=== PATIENT | female | born 1940 | race Caucasian/White ===

== ENCOUNTER → 2017-11-02 | Outpatient (CLI) | END | disposition home or self-care (01) ==

== ENCOUNTER → 2018-02-17 | Outpatient (CLI) | payer MEDICARE, OTHER ==
[~2018-02-17] MED LIST: ALBU90OI INH; ALEN10 PO; ALLO100 PO; ALLO300 PO; AMLO5 PO; ASPI325 PO; ATEN25 PO; CEPH500 PO; COLC.6 PO; COLCHICINE; Colace100 MG PO; Crutch1 EACH MISC; DOCU100 PO; FENO145 PO; FURO40 PO; GABA300 PO; GEMF600 PO; GLIP5 PO; GLUCOPHAGE; HCTZ; HYDACE5 PO; HYDCHL12.5 PO; INDO50 PO; INSDET100; INSDET100 INJ; INSDET100 SC; INSUASPI SC; IRON; LEVEMIR FL100 UNIT/1 SQ; LIPITOR; LISI20 PO; METF500 PO; METF500C PO; METO25ER PO; NAPR500 PO; Norco 5-325 Ta1 EACH PO; OMEG1CAP30 PO; ONGLYZA5 MG PO; OXYACE5T PO; PARI1 PO; PRAV20 PO; PRED20 PO; RANI150 PO; RXOXYACE PO; SAXA2.5T; SPIHYD PO; Zofran Odt4 MG SL
== END | disposition home or self-care (01) ==
LOC: LAB SHORT 07:54 → PLD 07:54
DX: D48.5 Neoplasm of uncertain behavior of skin (principal); L72.9 Follicular cyst of the skin and subcutaneous tissue, unspecified
CPT/HCPCS: 88304

== ENCOUNTER 2018-09-08 12:52 | Emergency (ER) | payer MEDICARE, OTHER ==
[~2018-09-08] VITALS: Ht 162.6 cm; Wt 54.4 kg
[2018-09-08 14:17] LABS: BASOPHILS ABSOLUTE AUTO 0.04 K/mm3 (0.00-0.23); BASOPHILS PERCENT AUTO 1 % (0-2); EOSINOPHILS ABSOLUTE AUTO 0.11 K/mm3 (0.00-0.68); EOSINOPHILS PERCENT AUTO 2 % (0-6); Hematocrit 42.1 % (33.0-51.0); Hemoglobin 13.2 g/dL (11.5-16.0); IMMATURE GRAN ABSOLUTE AUTO 0.02 K/mm3 (0.00-0.10); IMMATURE GRAN PERCENT AUTO 0 % (0-1); LYMPHOCYTES ABSOLUTE AUTO 1.47 K/mm3 (0.84-5.20); LYMPHOCYTES PERCENT AUTO 26 % (21-46); MONOCYTES ABSOLUTE AUTO 0.48 K/mm3 (0.16-1.47); MONOCYTES PERCENT AUTO 8 % (4-13); Mean Corpuscular HGB 28.9 pg (26.0-34.0); Mean Corpuscular HGB Conc 31.4 g/dL (31.5-36.5); Mean Corpuscular Volume 92 fL (80-100); Mean Platelet Volume 10.8 fL (9.1-12.4); NEUTROPHILS ABSOLUTE AUTO 3.62 K/mm3 (1.96-9.15); NEUTROPHILS PERCENT AUTO 63 % (41-73); Platelet Count 171 K/mm3 (150-400); RDW Coefficient Variation 13.5 % (11.7-14.2); Red Blood Cell Count 4.57 M/mm3 (3.80-5.20); White Blood Cell Count 5.74 K/mm3 (4.00-11.30)
[2018-09-08 14:33] LABS: Source, Urine Clean Catch
[2018-09-08] MEDS ORDERED: GABA300 PO (14:33)
[2018-09-08] MEDS ORDERED: FURO40 PO (14:34)
[2018-09-08] MEDS ORDERED: Prinivil10 MG PO (14:35)
[2018-09-08] MEDS ORDERED: ELOCON15 GM TOP (14:37)
[2018-09-08] MEDS ORDERED: TRULICITY0.75 MG/0. SC (14:39)
[2018-09-08] MEDS ORDERED: ONGLYZA5 MG PO (14:39)
[2018-09-08 14:40] LABS: Appearance, Urine Clear (Clear); Bilirubin, Urine Neg (Neg); Blood, Urine Neg (Neg); Color, Urine Yellow (P-Yellow); Glucose Qualitative, Urine Neg (Neg); Ketones, Urine Neg (Neg); Leukocyte Esterase, Urine 1+ (Neg); Nitrite, Urine Neg (Neg); Protein, Urine Neg (Neg); Urobilinogen, Urine NORM (Normal); pH, Urine 6.5 (5.0-8.0)
[2018-09-08 14:42] LABS: Alanine Aminotransfer (ALT/SGP 19 U/L (12-78); Albumin, Blood 3.9 g/dL (3.4-5.0); Albumin/Globulin Ratio 1.2 (0.8-1.8); Alk Phos 80 U/L (50-136); Anion Gap 7 mmol/L (6-16); Aspartate Aminotrans (AST/SGOT 22 U/L (12-37); Bilirubin, Total 0.5 mg/dL (0.1-1.0); Blood Urea Nitrogen 13 mg/dL (8-24); Bun/Creatinine Ratio 16.2 (12.0-20.0); CO2, Blood 24 mmol/L (21-32); Calcium, Blood 9.4 mg/dL (8.5-10.1); Chloride, Blood 109 mmol/L (98-108); Globulin, Blood 3.2 g/dL (2.2-4.0); Glomerular Filtration Rate >60 (60-); Glucose, Blood 109 mg/dL (70-99); Potassium, Blood 4.3 mmol/L (3.5-5.5); Sodium, Blood 140 mmol/L (136-145); Total Protein, Blood 7.1 g/dL (6.4-8.2); Troponin I <0.015 ng/mL (0.000-0.040)
[2018-09-08 15:01] LABS: Bacteria Few /hpf; Red Blood Cells, Urine Rare /hpf (0-2); Squamous Epithelial Cells Few /hpf (Few)
== END 2018-09-08 19:22 | disposition home or self-care (01) ==
LOC: ER 12:52
PROVIDERS: Emergency Medicine; Physician Assistant
DX: R07.9 Chest pain, unspecified (principal); F03.90 Unspecified dementia, unspecified severity, without behavioral disturbance, psychotic disturbance, mood disturbance, and anxiety; I10 Essential (primary) hypertension; R11.0 Nausea; Z79.899 Other long term (current) drug therapy; Z79.4 Long term (current) use of insulin; E11.40 Type 2 diabetes mellitus with diabetic neuropathy, unspecified
CPT/HCPCS: 36415; 71046; 73110; 80053; 81001; 83690; 84484; 85025; 87077; 87086; 87186; 93005; 93010; 96374; 96375; 99285-25; J0360; J2405; J7030

== ENCOUNTER → 2019-09-26 | Outpatient (CLI) | payer MEDICARE, OTHER ==
[~2019-09-26] MED LIST changes: +ELOCON15 GM TOP; +Prinivil10 MG PO; +TRULICITY0.75 MG/0. SC
== END | disposition home or self-care (01) ==
LOC: LAB SHORT 16:38 → LAB 16:38
DX: E55.9 Vitamin D deficiency, unspecified (principal); D47.2 Monoclonal gammopathy; M17.11 Unilateral primary osteoarthritis, right knee; M10.9 Gout, unspecified; M81.0 Age-related osteoporosis without current pathological fracture
CPT/HCPCS: 82652

== ENCOUNTER 2020-05-09 05:19 | Inpatient (IN) | payer MEDICARE, OTHER ==
[~2020-05-09] VITALS: Ht 157.5 cm; Wt 51.3 kg
[2020-05-09 05:36] LABS: BASOPHILS ABSOLUTE AUTO 0.05 K/mm3 (0.00-0.23); BASOPHILS PERCENT AUTO 1 % (0-2); EOSINOPHILS ABSOLUTE AUTO 0.17 K/mm3 (0.00-0.68); EOSINOPHILS PERCENT AUTO 2 % (0-6); Hematocrit 39.1 % (33.0-51.0); Hemoglobin 12.2 g/dL (11.5-16.0); IMMATURE GRAN ABSOLUTE AUTO 0.06 K/mm3 (0.00-0.10); IMMATURE GRAN PERCENT AUTO 1 % (0-1); LYMPHOCYTES ABSOLUTE AUTO 1.43 K/mm3 (0.84-5.20); LYMPHOCYTES PERCENT AUTO 20 % (21-46); MONOCYTES ABSOLUTE AUTO 0.61 K/mm3 (0.16-1.47); MONOCYTES PERCENT AUTO 8 % (4-13); Mean Corpuscular HGB 29.2 pg (26.0-34.0); Mean Corpuscular HGB Conc 31.2 g/dL (31.5-36.5); Mean Corpuscular Volume 94 fL (80-100); Mean Platelet Volume 10.4 fL (9.1-12.4); NEUTROPHILS ABSOLUTE AUTO 4.91 K/mm3 (1.96-9.15); NEUTROPHILS PERCENT AUTO 68 % (41-73); Platelet Count 184 K/mm3 (150-400); RDW Coefficient Variation 13.2 % (11.7-14.2); RDW Standard Deviation 45.5 fL (35.1-46.3); Red Blood Cell Count 4.18 M/mm3 (3.80-5.20); White Blood Cell Count 7.23 K/mm3 (4.00-11.30)
[2020-05-09 05:53] LABS: Bun/Creatinine Ratio 14.5 (12.0-20.0); Calcium, Blood 9.1 mg/dL (8.5-10.1); Creatinine, Blood 1.1 mg/dL (0.40-1.00); International Normalized Ratio 0.99; Prothrombin Time Results 10.6 Sec (9.7-11.5)
[2020-05-09 10:39] LABS: Influenza A, PCR Negative (NEGATIVE); Influenza B, PCR Negative (NEGATIVE); Resp Syncytial Virus, PCR Negative (NEGATIVE); SARS-Cov-2 (COVID-19) PCR, MMC Negative (NEGATIVE)
--- NOTE | 2020-05-09 12:47 | NUR ---
PATIENT'S SPOUSE IN TO SEE; BROUGHT BILAT HILL'S AND LOWER DENTURES. PATIENT USED BEDPAN; TOLERATED WELL. PATIENT VERY TALKATIVE, RANDOM AT TIMES. PLEASANT AND COOPERATIVE. IVF FLUID INFUSING PER ORDER. SPOKE WITH DR MORALES, VERIFIED LASIX ORDER, START TOMORROW.
--- NOTE | 2020-05-09 16:50 | NUR ---
PATIENT TO ROOM 213 VIA BED FROM PACU. AWAKE. DENIES PAIN, NAUSEA. SURGICAL DRESSING TO R HIP X 2. WIGGLES FEET. CIRC CHECKS WNL. VSS. LS CLEAR. BIOX > 90% ON RA. HRR. CONT TO MONITOR.
[2020-05-10 04:27] LABS: BASOPHILS ABSOLUTE AUTO 0.01 K/mm3 (0.00-0.23); BASOPHILS PERCENT AUTO 0 % (0-2); EOSINOPHILS PERCENT AUTO 0 % (0-6); Hematocrit 29.4 % (33.0-51.0); Hemoglobin 9.4 g/dL (11.5-16.0); IMMATURE GRAN ABSOLUTE AUTO 0.04 K/mm3 (0.00-0.10); IMMATURE GRAN PERCENT AUTO 0 % (0-1); LYMPHOCYTES ABSOLUTE AUTO 0.66 K/mm3 (0.84-5.20); LYMPHOCYTES PERCENT AUTO 7 % (21-46); MONOCYTES PERCENT AUTO 8 % (4-13); Mean Corpuscular HGB 29.7 pg (26.0-34.0); Mean Corpuscular Volume 93 fL (80-100); Mean Platelet Volume 10.6 fL (9.1-12.4); NEUTROPHILS ABSOLUTE AUTO 8.59 K/mm3 (1.96-9.15); NEUTROPHILS PERCENT AUTO 85 % (41-73); Platelet Count 147 K/mm3 (150-400); RDW Standard Deviation 44.4 fL (35.1-46.3); Red Blood Cell Count 3.17 M/mm3 (3.80-5.20)
[2020-05-10 04:45] LABS: Bun/Creatinine Ratio 16.8 (12.0-20.0); Calcium, Blood 8.6 mg/dL (8.5-10.1); Creatinine, Blood 1.13 mg/dL (0.40-1.00); Magnesium, Blood 1.9 mg/dL (1.6-2.4); Potassium, Blood 4.6 mmol/L (3.5-5.5)
--- NOTE | 2020-05-10 05:29 | NUR ---
SHIFT SUMMARY POD 1 R HIP NAILING. AA0X1/2. UNABLE TO STATE DATE OR LOCATION EVENTUAL REMEMEBERED SHE WAS AT HOSPITAL. PLEASANT AND COOPERATIVE DURING SHIFT. CALLS APPROPRIATLY FOR BED PAIN. VOIDED MULTIPLE TIMES. TOLERATING PO WELL. DENIES PAIN DURING SHIFT. REPOSITIONS SELF IN BED. PLAN WILL BE TO WORK WITH PT TODAY.
--- NOTE | 2020-05-10 17:06 | NUR ---
SHIFT SUMMARY PATIENT W/O C/O THIS SHIFT. TOLERATES UP TO CHAIR, BSC. SURGICAL DRESSING X 2 TO R HIP D&I. CIRC CHECKS WNL. TOLERATING PO. VOIDING. SPOUSE IN TO SEE. NO ACUTE CHANGES.
--- NOTE | 2020-05-11 04:59 | NUR ---
SHIFT SUMMARY PT A/O X3; FORGETFUL/CONFUSED AT TIMES - BED ALARM ON. PT HAS BEEN UP TO BSC SEVERAL TIMES WITH FWW, GB, AND 1-2X ASSIST. TOLERATING PO INTAKE W/O N/V. VOIDING AND HAVING BM'S. BP HAS BEEN LOW; HELD 21OO BP MEDICATIONS, DISCUSSED WITH POWER CHISEL OPERATOR, AND RESTARTED IV FLUIDS PER ORDER. PT RESTING AT THIS TIME WITH CALL LIGHT IN REACH AND BED ALARM ON.
[2020-05-11 12:54] LABS: BASOPHILS ABSOLUTE AUTO 0.05 K/mm3 (0.00-0.23); BASOPHILS PERCENT AUTO 1 % (0-2); EOSINOPHILS ABSOLUTE AUTO 0.18 K/mm3 (0.00-0.68); EOSINOPHILS PERCENT AUTO 3 % (0-6); Hematocrit 29.6 % (33.0-51.0); Hemoglobin 9.4 g/dL (11.5-16.0); IMMATURE GRAN ABSOLUTE AUTO 0.05 K/mm3 (0.00-0.10); IMMATURE GRAN PERCENT AUTO 1 % (0-1); LYMPHOCYTES ABSOLUTE AUTO 1.16 K/mm3 (0.84-5.20); LYMPHOCYTES PERCENT AUTO 16 % (21-46); MONOCYTES ABSOLUTE AUTO 0.65 K/mm3 (0.16-1.47); MONOCYTES PERCENT AUTO 9 % (4-13); Mean Corpuscular HGB 29.8 pg (26.0-34.0); Mean Corpuscular HGB Conc 31.8 g/dL (31.5-36.5); Mean Corpuscular Volume 94 fL (80-100); Mean Platelet Volume 10.9 fL (9.1-12.4); NEUTROPHILS ABSOLUTE AUTO 5.25 K/mm3 (1.96-9.15); NEUTROPHILS PERCENT AUTO 71 % (41-73); Platelet Count 137 K/mm3 (150-400); RDW Coefficient Variation 13.3 % (11.7-14.2); RDW Standard Deviation 45.5 fL (35.1-46.3); Red Blood Cell Count 3.15 M/mm3 (3.80-5.20); White Blood Cell Count 7.34 K/mm3 (4.00-11.30)
[2020-05-11 12:57] LABS: Bun/Creatinine Ratio 24.1 (12.0-20.0); Calcium, Blood 8.4 mg/dL (8.5-10.1); Creatinine, Blood 1.08 mg/dL (0.40-1.00); Potassium, Blood 4.4 mmol/L (3.5-5.5)
--- NOTE | 2020-05-11 15:39 | NUR ---
DISCHARGE NOTE REPORT GIVE TO RACHEL @ [facility], PT A/O X4 AT TIME OF TRANSPORT ARRIVAL, 2 BM TODAY, 2 UNMEASURED VOIDS, TOLERATING PO, PASSING FLATUS, PAIN WELL CONTROLLED PER EMAR. VITALS STABLE AND GIVEN IN REPORT, NO BED SORES NOTED, AQUACELLS TO R LEG C/D/I, FRESH DEPENDS APPLIED. PT SENT W/ ALL PERSONAL BELONGINGS.
== END 2020-05-11 15:30 | DRG 482 ==
LOC: ER 05:19 → SURS 10:03
PROVIDERS: Emergency Medicine; Family Medicine; Internal Medicine; Orthopaedic Surgery; ADMIT Family Medicine
PROC: 0QS636Z Reposition Right Upper Femur with Intramedullary Internal Fixation Device, Percutaneous Approach (ICD-10-PCS; principal; 2020-05-09 15:45)
DX: S72.141A Displaced intertrochanteric fracture of right femur, initial encounter for closed fracture (principal); E11.42 Type 2 diabetes mellitus with diabetic polyneuropathy; E11.65 Type 2 diabetes mellitus with hyperglycemia; I10 Essential (primary) hypertension; M10.9 Gout, unspecified; W19.XXXA Unspecified fall, initial encounter; Z20.828 Contact with and (suspected) exposure to other viral communicable diseases; F03.90 Unspecified dementia, unspecified severity, without behavioral disturbance, psychotic disturbance, mood disturbance, and anxiety; E78.5 Hyperlipidemia, unspecified; E89.0 Postprocedural hypothyroidism; M17.10 Unilateral primary osteoarthritis, unspecified knee
CPT/HCPCS: 0241U; 36415; 71045; 73502; 73560-RT; 80048; 82947; 83735; 85025; 85610; 85730; 86850; 86900; 86901; 93005; 93010; 97110; 97162; 97166; 97530; 99285-25; A9270; A9270-GY; C1713; C1769; J0690; J1650; J2704; J3010; J3480; J7030; J7120

== ENCOUNTER 2020-05-30 13:16 | Inpatient (IN) | payer MEDICARE, OTHER ==
[~2020-05-30] VITALS: Ht 154.9 cm; Wt 48.7 kg
[2020-05-30 13:50] LABS: Calcium, Ionized (POC) 1.16 mmol/L (1.10-1.46); Chloride (POC) 87 mmol/L (98-108); Creatinine (POC) 2.1 mg/dL (0.6-1.0); Glucose (ISTAT POC) 106 mg/dL (70-99); Hemoglobin (POC) 10.5 g/dL (12.0-16.0); Sodium (POC) 117 mmol/L (135-148); Total CO2 (POC) 22 mmol/L (21-32)
[2020-05-30 13:56] LABS: BASOPHILS ABSOLUTE AUTO 0.04 K/mm3 (0.00-0.23); BASOPHILS PERCENT AUTO 1 % (0-2); EOSINOPHILS PERCENT AUTO 4 % (0-6); Hematocrit 30.8 % (33.0-51.0); Hemoglobin 10.3 g/dL (11.5-16.0); IMMATURE GRAN ABSOLUTE AUTO 0.19 K/mm3 (0.00-0.10); IMMATURE GRAN PERCENT AUTO 3 % (0-1); LYMPHOCYTES ABSOLUTE AUTO 1.68 K/mm3 (0.84-5.20); LYMPHOCYTES PERCENT AUTO 24 % (21-46); MONOCYTES ABSOLUTE AUTO 0.65 K/mm3 (0.16-1.47); MONOCYTES PERCENT AUTO 9 % (4-13); Mean Corpuscular HGB 29.1 pg (26.0-34.0); Mean Corpuscular HGB Conc 33.4 g/dL (31.5-36.5); Mean Corpuscular Volume 87 fL (80-100); Mean Platelet Volume 9.8 fL (9.1-12.4); NEUTROPHILS PERCENT AUTO 60 % (41-73); Platelet Count 408 K/mm3 (150-400); RDW Coefficient Variation 12.8 % (11.7-14.2); RDW Standard Deviation 40.6 fL (35.1-46.3); Red Blood Cell Count 3.54 M/mm3 (3.80-5.20); White Blood Cell Count 7.16 K/mm3 (4.00-11.30)
[2020-05-30 14:18] LABS: Alanine Aminotransfer (ALT/SGP 13 U/L (12-78); Albumin, Blood 3.1 g/dL (3.4-5.0); Albumin/Globulin Ratio 0.9 (0.8-1.8); Alk Phos 103 U/L (50-136); Anion Gap 11 mmol/L (6-16); Aspartate Aminotrans (AST/SGOT 20 U/L (12-37); Bilirubin, Total 0.4 mg/dL (0.1-1.0); Blood Urea Nitrogen 68 mg/dL (8-24); Bun/Creatinine Ratio 42.2 (12.0-20.0); CO2, Blood 22 mmol/L (21-32); Calcium, Blood 9.1 mg/dL (8.5-10.1); Chloride, Blood 88 mmol/L (98-108); Creatinine, Blood 1.61 mg/dL (0.40-1.00); Globulin, Blood 3.6 g/dL (2.2-4.0); Glomerular Filtration Rate 33 (60-); Glucose, Blood 103 mg/dL (70-99); Potassium, Blood 4.7 mmol/L (3.5-5.5); Sodium, Blood 121 mmol/L (136-145); Total Protein, Blood 6.7 g/dL (6.4-8.2); Troponin I <0.015 ng/mL (0.000-0.040)
[2020-05-30 15:24] LABS: Influenza A, PCR Negative (NEGATIVE); Influenza B, PCR Negative (NEGATIVE); Resp Syncytial Virus, PCR Negative (NEGATIVE); SARS-Cov-2 (COVID-19) PCR, MMC Negative (NEGATIVE)
[2020-05-30] MEDS ORDERED: Aspir 8181 MG PO (15:29)
[2020-05-30 15:47] LABS: Source, Urine Catheter
[2020-05-30 15:52] LABS: Appearance, Urine Clear (Clear); Bilirubin, Urine Neg (Neg); Blood, Urine Neg (Neg); Color, Urine Yellow (P-Yellow); Glucose Qualitative, Urine Neg (Neg); Ketones, Urine 1+ (Neg); Leukocyte Esterase, Urine Neg (Neg); Nitrite, Urine Neg (Neg); Protein, Urine Neg (Neg); Specific Gravity, Urine 1.015 (1.003-1.022); Urobilinogen, Urine NORM (Normal)
--- NOTE | 2020-05-30 17:58 | NUR ---
TRANSFERED TO ICU 7 PT ARRIVED AT 1719 TO ICU RM 7 BY ED BED. PT TRANSFERED TO ICU BED VIA SLIDE SHEET; PT TOLERATED WELL. PT BEING PACED AT 70BPM WITH 100% CAPTURE. BP 94/46. PT ORIENTED TO SELF BUT NOT LOCATION/DATE/TIME. PT O2 SAT >98% ON RA. DE LEON PATENT AND DRAINING TO GRAVITY. SEE ADMISSION ASSESSMENT FOR FULL ASSESSMENT.
--- NOTE | 2020-05-30 19:57 | NUR ---
PATIENT RESTING QUIETLY IN BED, SLIGHTLY CONFUSED CONVERSATION. FOLLOWING DIRECTIONS WELL. TRANSVENOUS PACER IN PLACE TO RIGHT IJ, WITH 40 CM MICHELE NEAREST EXPOSED. MONITOR SHOWING 100% PACED AT RATE OF 70. HYPOTENSION WITH NS IV BOLUS GIVEN AND NS AT 75 CC/HR STARTED. DE LEON IN PLACE DRAINING CLEAR YELLOW URINE. PULSES 2+ TO ALL EXTREMITIES. PATIENT WITH NO COMPLAINTS AT THIS TIME
--- NOTE | 2020-05-30 20:27 | NUR ---
DOCTOR JAQUELINE NOTIFIED OF CONTINUED HYPOTENSION. NEEDING TO BE CAUTIOUS OF FLUID OVERLOAD. ORDER OF DOPAMINE IV FOR MAP > 65
[2020-05-30 20:55] LABS: Specific Gravity, Urine 1.01 (1.003-1.022)
[2020-05-30] MEDS ORDERED: CEPH500 PO (22:17)
[2020-05-30] MEDS ORDERED: SENN187 PO (22:18)
[2020-05-30] MEDS ORDERED: HYDR1TAB94 PO (22:19)
[2020-05-30] MEDS ORDERED: ACET325 PO (22:20)
[2020-05-31 03:49] LABS: BASOPHILS ABSOLUTE AUTO 0.03 K/mm3 (0.00-0.23); BASOPHILS PERCENT AUTO 0 % (0-2); EOSINOPHILS ABSOLUTE AUTO 0.02 K/mm3 (0.00-0.68); EOSINOPHILS PERCENT AUTO 0 % (0-6); Hematocrit 31.2 % (33.0-51.0); Hemoglobin 10.5 g/dL (11.5-16.0); IMMATURE GRAN ABSOLUTE AUTO 0.16 K/mm3 (0.00-0.10); IMMATURE GRAN PERCENT AUTO 2 % (0-1); LYMPHOCYTES ABSOLUTE AUTO 0.37 K/mm3 (0.84-5.20); LYMPHOCYTES PERCENT AUTO 5 % (21-46); MONOCYTES ABSOLUTE AUTO 0.29 K/mm3 (0.16-1.47); MONOCYTES PERCENT AUTO 4 % (4-13); Mean Corpuscular HGB 29.2 pg (26.0-34.0); Mean Corpuscular HGB Conc 33.7 g/dL (31.5-36.5); Mean Corpuscular Volume 87 fL (80-100); Mean Platelet Volume 9.9 fL (9.1-12.4); NEUTROPHILS ABSOLUTE AUTO 7.28 K/mm3 (1.96-9.15); NEUTROPHILS PERCENT AUTO 89 % (41-73); Platelet Count 414 K/mm3 (150-400); RDW Coefficient Variation 12.8 % (11.7-14.2); RDW Standard Deviation 40.9 fL (35.1-46.3); Red Blood Cell Count 3.59 M/mm3 (3.80-5.20); White Blood Cell Count 8.15 K/mm3 (4.00-11.30)
[2020-05-31 05:23] LABS: Anion Gap 9 mmol/L (6-16); Blood Urea Nitrogen 47 mg/dL (8-24); Bun/Creatinine Ratio 55.5 (12.0-20.0); CO2, Blood 21 mmol/L (21-32); Calcium, Blood 8.6 mg/dL (8.5-10.1); Chloride, Blood 102 mmol/L (98-108); Creatinine, Blood 0.85 mg/dL (0.40-1.00); Glomerular Filtration Rate >60 (60-); Glucose, Blood 176 mg/dL (70-99); Potassium, Blood 4.6 mmol/L (3.5-5.5)
[2020-05-31 05:29] LABS: Sodium, Blood 132 mmol/L (136-145)
--- NOTE | 2020-05-31 06:37 | NUR ---
SUMMARY PATIENT AWAKE WATCHING TV, CONFUSED CONVERSATION CONTINUES. MAEW AND TO DIRECTIONS. RIGHT PUPIL LARGER THAN LEFT. TRANSVENOUS PACER IN PLACE AT 32 CM 100% PACED SET AT 6V. OCCASIONAL PVC SEEN. HYPOTENSION CONTINUES DOPAMINE AT 8 MCG.
--- NOTE | 2020-05-31 08:02 | NUR ---
ASSUMED CARE BEDSIDE REPORT FROM SAMI BONNER AT 0700. PT RESTING IN BED. MAKES EYE CONTACT. CONFUSED CONVERSATION. RESPONDS "YES" TO MOST QUESTIONS. FOLLOWS SIMPLE COMMANDS. KIMBER. TRANSVENOUS PACEMAKER TO RIJ. MODE VVI, RATE 70, V 6. 100% PACED. PACEMAKER SECURED c OPSITE DRESSING, BETWEEN 30-40. DOPAMINE GTT 8 MCG/KG/MIN INFUSING VIA CENTRAL LINE PORT. TITRATING FOR MAP>65. IVF CHANGED TO LR AT 75 ML/HR. LUNGS DIMINISHED IN BASES. DE LEON PATENT, DRAINING CLEAR YELLOW URINE TO GRAVITY. CALL LIGHT IN REACH. WILL CONTINUE TO MONITOR.
--- NOTE | 2020-05-31 10:01 | NUR ---
Echocardiogram completed.
--- NOTE | 2020-05-31 14:34 | NUR ---
SHIFT SUMMARY/TRANSFER TO [facility] AFTER ECHO, DR BASURTO NOTIFIED BY CRIMINAL RECORDS TECHNICIAN OF POSSIBLE LV PLACEMENT OF TRANSVENOUS PACER. UNABLE TO DRAW BLOOD FROM PORT. PLACED TO TRANSDUCER, UNABLE TO GET ACCURATE WAVE FORM, APPEARS TO PULSATE c HR. DOPAMINE CHANGED TO PIV. CONCERN FOR ARTERIAL PLACEMENT. CONTINUES TO HAVE 100% CAPTURE, STRONG PERIPHERAL PULSES. DR BASURTO AT BEDSIDE TO PLACE TRANSVENOUS CATH, PLACED TO [facility]. SETTINGS VVI, RATE 70, mV 2, V 6. 100% CAPTURE. 40 CM VISABLE UNDER STERILE SHEATH PROTECTOR, 30 CM VISUALIZED PRIOR TO SHEATH PROTECTOR BEING SECURED. PREVIOUS SHEATH REMOVED BY DR PERKINS AND PRESSURE APPLIED. NO SWELLING, BRUISING OR BLEEDING NOTED. DRESSING PLACED OVER ENTIRE SITE. REPORT TO REACH TEAM. WILL CALL REPORT TO ELISHA BONNER AT [facility].
== END 2020-05-31 14:10 | disposition short-term general hospital (02) | DRG 261 ==
LOC: ER 13:16 → ICUW 13:17 → ICUE 13:17 → ICUW 16:03 → ICUE 18:05 → ICUW 18:05 → ICUE 05-31 14:10
PROVIDERS: Emergency Medicine; ADMIT Internal Medicine
PROC: 05HM33Z Insertion of Infusion Device into Right Internal Jugular Vein, Percutaneous Approach (ICD-10-PCS; principal; 2020-05-30)
PROC: 5A1223Z Performance of Cardiac Pacing, Continuous (ICD-10-PCS; 2020-05-30)
PROC: 02HK3JZ Insertion of Pacemaker Lead into Right Ventricle, Percutaneous Approach (ICD-10-PCS; 2020-05-30)
PROC: 5A1223Z Performance of Cardiac Pacing, Continuous (ICD-10-PCS; 2020-05-31)
DX: I44.2 Atrioventricular block, complete (principal); N17.9 Acute kidney failure, unspecified; E87.1 Hypo-osmolality and hyponatremia; G93.49 Other encephalopathy; Z68.1 Body mass index [BMI] 19.9 or less, adult; E46 Unspecified protein-calorie malnutrition; Z20.828 Contact with and (suspected) exposure to other viral communicable diseases; E11.65 Type 2 diabetes mellitus with hyperglycemia; E86.0 Dehydration; E11.42 Type 2 diabetes mellitus with diabetic polyneuropathy; F03.90 Unspecified dementia, unspecified severity, without behavioral disturbance, psychotic disturbance, mood disturbance, and anxiety; I12.9 Hypertensive chronic kidney disease with stage 1 through stage 4 chronic kidney disease, or unspecified chronic kidney disease; E11.22 Type 2 diabetes mellitus with diabetic chronic kidney disease; N18.9 Chronic kidney disease, unspecified; E78.5 Hyperlipidemia, unspecified; M10.9 Gout, unspecified; D64.9 Anemia, unspecified; M17.10 Unilateral primary osteoarthritis, unspecified knee; S72.001D Fracture of unspecified part of neck of right femur, subsequent encounter for closed fracture with routine healing; Z86.39 Personal history of other endocrine, nutritional and metabolic disease; Z79.899 Other long term (current) drug therapy; Z79.82 Long term (current) use of aspirin; Z98.84 Bariatric surgery status
CPT/HCPCS: 0241U; 33210; 36415; 36556; 51702; 71045; 80047; 80048; 80053; 81003; 82607; 82746; 83930; 83935; 84300; 84443; 84484; 85014; 85025; 93005; 93010; 93306; 96374-59; 99285-25; C1751; C1894; J0461; J1265; J1650; J2250; J3010; J7030; J7040; J7050; J7120

== ENCOUNTER 2020-07-28 09:14 | Emergency (ER) | payer MEDICARE, OTHER ==
[~2020-07-28] VITALS: Ht 162.6 cm; Wt 52.2 kg
[~2020-07-28 09:14] MED LIST changes: +ACET325 PO; +Aspir 8181 MG PO; +HYDR1TAB94 PO; +LISI5 PO; -Prinivil10 MG PO; +SENN187 PO
[2020-07-28 09:44] LABS: BASOPHILS ABSOLUTE AUTO 0.01 K/mm3 (0.00-0.23); BASOPHILS PERCENT AUTO 0 % (0-2); EOSINOPHILS ABSOLUTE AUTO 0.13 K/mm3 (0.00-0.68); EOSINOPHILS PERCENT AUTO 2 % (0-6); Hematocrit 38.4 % (33.0-51.0); Hemoglobin 12.6 g/dL (11.5-16.0); IMMATURE GRAN ABSOLUTE AUTO 0.04 K/mm3 (0.00-0.10); IMMATURE GRAN PERCENT AUTO 1 % (0-1); LYMPHOCYTES ABSOLUTE AUTO 0.75 K/mm3 (0.84-5.20); LYMPHOCYTES PERCENT AUTO 9 % (21-46); MONOCYTES ABSOLUTE AUTO 0.43 K/mm3 (0.16-1.47); MONOCYTES PERCENT AUTO 5 % (4-13); Mean Corpuscular HGB 28.1 pg (26.0-34.0); Mean Corpuscular HGB Conc 32.8 g/dL (31.5-36.5); Mean Corpuscular Volume 86 fL (80-100); Mean Platelet Volume 10.2 fL (9.1-12.4); NEUTROPHILS ABSOLUTE AUTO 7.04 K/mm3 (1.96-9.15); NEUTROPHILS PERCENT AUTO 84 % (41-73); Platelet Count 150 K/mm3 (150-400); RDW Coefficient Variation 14.2 % (11.7-14.2); RDW Standard Deviation 43.5 fL (35.1-46.3); Red Blood Cell Count 4.49 M/mm3 (3.80-5.20)
[2020-07-28 10:02] LABS: Alanine Aminotransfer (ALT/SGP 13 U/L (12-78); Albumin, Blood 3.7 g/dL (3.4-5.0); Albumin/Globulin Ratio 1.3 (0.8-1.8); Alk Phos 63 U/L (50-136); Anion Gap 15 mmol/L (6-16); Aspartate Aminotrans (AST/SGOT 22 U/L (12-37); Bilirubin, Total 0.9 mg/dL (0.1-1.0); Blood Urea Nitrogen 45 mg/dL (8-24); Bun/Creatinine Ratio 51.1 (12.0-20.0); CO2, Blood 21 mmol/L (21-32); Calcium, Blood 10.2 mg/dL (8.5-10.1); Chloride, Blood 101 mmol/L (98-108); Creatinine, Blood 0.88 mg/dL (0.40-1.00); Globulin, Blood 2.9 g/dL (2.2-4.0); Glomerular Filtration Rate >60 (60-); Glucose, Blood 133 mg/dL (70-99); Potassium, Blood 4.3 mmol/L (3.5-5.5); Sodium, Blood 137 mmol/L (136-145); Total Protein, Blood 6.6 g/dL (6.4-8.2)
[2020-07-28 11:22] LABS: Source, Urine Clean Catch
[2020-07-28 11:35] LABS: Blood, Urine 2+ (Neg); Glucose Qualitative, Urine Neg (Neg); Ketones, Urine 3+ (Neg); Leukocyte Esterase, Urine 3+ (Neg); Nitrite, Urine Pos (Neg); Protein, Urine 2+ (Neg); Specific Gravity, Urine 1.025 (1.003-1.022); Urobilinogen, Urine NORM (Normal)
[2020-07-28 11:45] LABS: Bilirubin, Urine 1+ (Neg); Color, Urine Yellow (P-Yellow)
[2020-07-28 11:46] LABS: Appearance, Urine Cloudy (Clear)
[2020-07-28 11:47] LABS: Bacteria Many /hpf; Red Blood Cells, Urine 0-2 /hpf (0-2); Squamous Epithelial Cells Few /hpf (Few); White Blood Cells, Urine 25-50 /hpf (0-5)
[2020-07-28] MEDS ORDERED: CEPH500 PO (11:54)
== END 2020-07-28 12:46 | disposition home or self-care (01) ==
LOC: ER 09:14
PROVIDERS: Emergency Medicine
DX: N39.0 Urinary tract infection, site not specified (principal); R63.0 Anorexia; R63.4 Abnormal weight loss; E11.40 Type 2 diabetes mellitus with diabetic neuropathy, unspecified; E78.5 Hyperlipidemia, unspecified; I10 Essential (primary) hypertension; Z68.1 Body mass index [BMI] 19.9 or less, adult; Z79.82 Long term (current) use of aspirin
CPT/HCPCS: 70450; 71045; 80053; 81001; 84443; 85025; 87077; 87086; 87186; 93005; 93010; 96365; 99285-25; J0696

== ENCOUNTER 2020-08-04 14:35 | Inpatient (IN) | payer MEDICARE, OTHER ==
[~2020-08-04] VITALS: Ht 160 cm; Wt 35.6 kg
[2020-08-04 15:10] LABS: BASOPHILS ABSOLUTE AUTO 0.01 K/mm3 (0.00-0.23); BASOPHILS PERCENT AUTO 0 % (0-2); EOSINOPHILS ABSOLUTE AUTO 0.16 K/mm3 (0.00-0.68); EOSINOPHILS PERCENT AUTO 3 % (0-6); Hematocrit 38.5 % (33.0-51.0); IMMATURE GRAN ABSOLUTE AUTO 0.03 K/mm3 (0.00-0.10); IMMATURE GRAN PERCENT AUTO 1 % (0-1); LYMPHOCYTES ABSOLUTE AUTO 0.79 K/mm3 (0.84-5.20); LYMPHOCYTES PERCENT AUTO 12 % (21-46); MONOCYTES ABSOLUTE AUTO 0.27 K/mm3 (0.16-1.47); MONOCYTES PERCENT AUTO 4 % (4-13); Mean Corpuscular HGB 27.3 pg (26.0-34.0); Mean Corpuscular HGB Conc 31.2 g/dL (31.5-36.5); Mean Corpuscular Volume 88 fL (80-100); Mean Platelet Volume 11.5 fL (9.1-12.4); NEUTROPHILS ABSOLUTE AUTO 5.14 K/mm3 (1.96-9.15); NEUTROPHILS PERCENT AUTO 80 % (41-73); RDW Coefficient Variation 14.6 % (11.7-14.2); RDW Standard Deviation 46.6 fL (35.1-46.3); Red Blood Cell Count 4.39 M/mm3 (3.80-5.20)
[2020-08-04 15:26] LABS: Albumin/Globulin Ratio 1.1 (0.8-1.8); Bilirubin, Total 0.7 mg/dL (0.1-1.0); Bun/Creatinine Ratio 56.1 (12.0-20.0); Calcium, Blood 9.9 mg/dL (8.5-10.1); Creatinine, Blood 1.55 mg/dL (0.40-1.00); Globulin, Blood 2.8 g/dL (2.2-4.0); Potassium, Blood 3.7 mmol/L (3.5-5.5); Total Protein, Blood 5.8 g/dL (6.4-8.2)
[2020-08-04 15:29] LABS: Platelet Count 73 K/mm3 (150-400)
[2020-08-04] MEDS ORDERED: THERA-D2000 UNIT PO (15:52)
[2020-08-04] MEDS ORDERED: TRULICITY0.75 MG/01 SC (15:52)
[2020-08-04] MEDS ORDERED: Vitamin B-121000 MCG PO (15:53)
[2020-08-04] MEDS ORDERED: METO25ER PO (15:53)
[2020-08-04 17:25] LABS: Influenza A, PCR NEGATIVE (NEGATIVE); Influenza B, PCR NEGATIVE (NEGATIVE); Resp Syncytial Virus, PCR NEGATIVE (NEGATIVE); SARS-Cov-2 (COVID-19) PCR, MMC NEGATIVE (NEGATIVE)
--- NOTE | 2020-08-04 19:33 | NUR ---
SHIFT SUMMARY PT CAME HERE FOR DEHYDRATION AND FTT. PT LIVES WITH AT HOME AND IS THE CAREGIVER OF THIS PT. STATED PT HAS BEEN DECLINING FOR WEEKS AND NOT EATING.PT VERY WEAK AND FRAGILE WITH MALNUTRITION. PT CAME IN NONVERBAL AND EYES CLOSED. PT IS ON 2L OF O2 FOR SUPPLEMENT.SATS ABOVE 90S. AND VSS. PT IS IN DENIAL STAGE ABOUT THE SITUATION OF THIS PT. PT STATED THAT THE PT PROBABLY HAS MULTIPLE BRUISES ESPECIALLY ON THE BUTTOCKS BECAUSE HE CARRIED HER TO THE CAR TO TAKE HER TO THE DOCTOR. PT CAME IN WITH FULL CODE STATUS AND CHANGED TO DNR STATUS. PT HAD A PALLIATIVE CARE COMNSULT ORDERED. MEPELEX PLACED ON BUTTOM -SEE PIC FOR WOUND. PT HAD SEVERAL BRUUSING ON BOTH UPPER EXTREMITIES, AND RIGHT LOWER LEGS. PT HAD A HX OF DM AD GOUT. BED IS INTHE LOWEST POSITION AND CALL LIGHT WITHIN REACH. REPORTED TO NIGHT NURSE
--- NOTE | 2020-08-04 23:35 | NUR ---
PERFORMED BLADDER SCAN PER ORDER WITH RESULT OF 423MLS. NOTIFIED HOSPITALIST DR. LOMELI, RECEIVED ORDER FOR 1X STRAIGHT CATH. STRAIGHT CATH DONE WITH OUTPUT OF 300MLS, PT. TOLERATED WELL. WILL CONT TO MONITOR.
[2020-08-05 04:48] LABS: BASOPHILS PERCENT AUTO 0 % (0-2); EOSINOPHILS ABSOLUTE AUTO 0.03 K/mm3 (0.00-0.68); EOSINOPHILS PERCENT AUTO 1 % (0-6); Hematocrit 36.5 % (33.0-51.0); Hemoglobin 11.3 g/dL (11.5-16.0); IMMATURE GRAN ABSOLUTE AUTO 0.01 K/mm3 (0.00-0.10); IMMATURE GRAN PERCENT AUTO 0 % (0-1); LYMPHOCYTES ABSOLUTE AUTO 0.21 K/mm3 (0.84-5.20); LYMPHOCYTES PERCENT AUTO 6 % (21-46); MONOCYTES ABSOLUTE AUTO 0.11 K/mm3 (0.16-1.47); MONOCYTES PERCENT AUTO 3 % (4-13); Mean Corpuscular HGB 27.8 pg (26.0-34.0); Mean Corpuscular Volume 90 fL (80-100); Mean Platelet Volume 11.1 fL (9.1-12.4); NEUTROPHILS ABSOLUTE AUTO 3.28 K/mm3 (1.96-9.15); NEUTROPHILS PERCENT AUTO 90 % (41-73); RDW Coefficient Variation 14.7 % (11.7-14.2); RDW Standard Deviation 47.4 fL (35.1-46.3); Red Blood Cell Count 4.07 M/mm3 (3.80-5.20); White Blood Cell Count 3.64 K/mm3 (4.00-11.30)
[2020-08-05 04:51] LABS: Platelet Count 50 K/mm3 (150-400)
[2020-08-05 05:07] LABS: Magnesium, Blood 2.2 mg/dL (1.6-2.4)
[2020-08-05 05:08] LABS: Albumin, Blood 2.8 g/dL (3.4-5.0); Anion Gap 6 mmol/L (6-16); Blood Urea Nitrogen 78 mg/dL (8-24); Bun/Creatinine Ratio 56.1 (12.0-20.0); CO2, Blood 27 mmol/L (21-32); Chloride, Blood 118 mmol/L (98-108); Creatinine, Blood 1.39 mg/dL (0.40-1.00); Glomerular Filtration Rate 39 (60-); Glucose, Blood 400 mg/dL (70-99); Phosphorus, Blood 2.7 mg/dL (2.5-4.9); Potassium, Blood 3.9 mmol/L (3.5-5.5); Sodium, Blood 151 mmol/L (136-145)
--- NOTE | 2020-08-05 06:52 | NUR ---
SHIFT SUMMARY- PT. LETHARGIC DURING THE NIGHT. OCCASIONALLY OPENING EYES, RESPONDS TO PAIN. VERY WEAK AND FRAIL. REPOSITIONED Q2 AND PRN, ATTENDS IN PLACE. BLADDER SCAN DONE PER ORDER WITH RESULT OF 423. PHYSICIAN MADE AWARE. PERFORMED STRAIGHT CATH PER ORDER WITH AN OUTPUT OF 300. ALSO PERFORMED ORAL CARE, MOUTH FULL OF PLAQUE, PT. TOLERATED WELL. IV FLUIDS INFUSING, VSS. CALL LIGHT WITHIN REACH AND SIDE RAILS UPX2. WILL CONT TO MONITOR.
--- NOTE | 2020-08-05 07:48 | NUR ---
CALLED DR PATIÑO AND DISCUSSED LOW TEMPS WITH A HIGH OF 95.5 WITH WARM BLANKETS APPLIED, DISCUSSED BP OF 101 SYSTOLIC BP AND COMFORT CARE MEASURES. HE WANTS TO WAIT FOR PALLIATIVE CONSULT AND TO KEEP PT ON MEDICAL FLOOR FOR NOW. ALSO DISCUSSED CBG OF 403 WITH PT ON D5 DRIP. HE ORDERS THE DISCONTINUATION OF D5 AND CHANGE BACK TO LOW SLIDING SCALE INSULIN.
--- NOTE | 2020-08-05 12:26 | NUR ---
CALLED DR PATIÑO REGARDING RETENTION, BLADDER SCAN SHOWED 568ML IN BLADDER. HE ORDERED DE LEON CATHETER
[2020-08-05 13:39] LABS: Source, Urine Catheter
[2020-08-05 13:54] LABS: Bilirubin, Urine Neg (Neg); Blood, Urine 2+ (Neg); Glucose Qualitative, Urine 3+ (Neg); Ketones, Urine 1+ (Neg); Leukocyte Esterase, Urine 2+ (Neg); Nitrite, Urine Neg (Neg); Protein, Urine 1+ (Neg); Specific Gravity, Urine 1.015 (1.003-1.022); Urobilinogen, Urine NORM (Normal)
[2020-08-05 14:13] LABS: Appearance, Urine Hazy (Clear); Color, Urine Yellow (P-Yellow)
[2020-08-05 14:15] LABS: Uric Acid Crystals Few /hpf; Yeast/Fungi Urine Few /hpf
[2020-08-05 14:16] LABS: Bacteria Few /hpf; Squamous Epithelial Cells Few /hpf (Few)
--- NOTE | 2020-08-05 17:19 | NUR ---
Pt resting in bed upon arrival. Pt's eyes are opened and responds with whisper to yes and no questions. Pt appears frail and cachetic. Pt's spouse Harlan at bedside. Engaged in therapeutic listening as Harlan discusses Pt's refusal to eat over the last month. Harlan reports Pt weighed 140 pounds one month ago (current weight 78 pounds). Provided gentle education on disease process including trajectory of disease. Discussed the importance of considering Pt's wishes, values, and goals. Discussed considering hospice and continued therapeutic listening. Harlan reports plan to discuss further with family regarding the option of hospice. Harlan expresses appreciation of visit and reports no other concerns at this time. Harlan agreeable with continued Palliative Care visits. Spoke with Bedside RN Diana and discussed case. Palliative Care will remain available for supportive and therapeutic visits.
--- NOTE | 2020-08-05 19:39 | NUR ---
SHIFT SUMMARY ZENIA SLIGHTLY RESPONSIVE THIS SHIFT. OPENED EYES TO SPEECH, ANSWERED 'YES' AD 'FINE' TO 'HOW ARE YOU?' Q2 TURN DUE TO SACRAL ULCER. ATTEMPTED TO GIVE HER FOOD AT BREAKFAST, AND SHE WAS AWAKE ENOUGH, BUT CLENCHED HER MOUTH CLOSED. AT LUNCH, I PUT A TINY AMOUNT OF JELLO IN HER MOUTH AND SHE WAS UNABLE TO FOLLOW COMMANDS TO SWALLOW. NO PO INTAKE. MIVF RUNNING. RETAINED URINE, CALLED DR PATIÑO AND HE ORDERED DE LEON. DE LEON PLACED, DRAINING WELL. VISITED, PALLIATIVE CAME TO BS, SEE THEIR NOTE. ON 2L OXYGEN. CALL LIGHT IN REACH, REPORT GIVEN TO NIGHT NURSE
--- NOTE | 2020-08-06 06:10 | NUR ---
08/05/20 0600 PT LETHARGIC ALL SHIFT. AWAKENS WHEN NAME CALLED OR CARE GIVEN BUT INCOHERANT WORDS SPOKEN. HELD ORAL INTAKE FOR SAFTY ISSUES. VITALS STABLE. O2 REMAINS AT 2LPM VIA N/C. TURNED Q 2 HOURS. DE LEON CATH PATENT WITH RACHEL,SLIGHTLY CLOUDY URINE.
--- NOTE | 2020-08-06 10:53 | NUR ---
Spoke with Bedside RN Latasha cabello this AM and discussed case. Pt still lethargic and not eating. Pt resting in bed with her eyes closed upon arrival. Pt attempts to respond to this RNs voice and touch. Pt moves her head, keeps her eyes closed with slight whispering mumble. Will attempt to F/U when family arrives to visit.
[2020-08-06 12:21] LABS: Hemoglobin 10.6 g/dL (11.5-16.0); Mean Corpuscular HGB 28.1 pg (26.0-34.0); Mean Corpuscular HGB Conc 32.1 g/dL (31.5-36.5); Mean Corpuscular Volume 88 fL (80-100); Mean Platelet Volume 11.3 fL (9.1-12.4); RDW Coefficient Variation 14.6 % (11.7-14.2); RDW Standard Deviation 45.4 fL (35.1-46.3); Red Blood Cell Count 3.77 M/mm3 (3.80-5.20); White Blood Cell Count 1.93 K/mm3 (4.00-11.30)
[2020-08-06 12:42] LABS: Anion Gap 9 mmol/L (6-16); Blood Urea Nitrogen 53 mg/dL (8-24); CO2, Blood 24 mmol/L (21-32); Calcium, Blood 8.6 mg/dL (8.5-10.1); Chloride, Blood 121 mmol/L (98-108); Creatinine, Blood 0.95 mg/dL (0.40-1.00); Glomerular Filtration Rate >60 (60-); Glucose, Blood 161 mg/dL (70-99); Potassium, Blood 3.8 mmol/L (3.5-5.5); Sodium, Blood 154 mmol/L (136-145)
[2020-08-06 12:45] LABS: Platelet Count 37 K/mm3 (150-400)
[2020-08-06 12:56] LABS: BAND PERCENT MAN 15 % (0-8); BASOPHILS PERCENT MAN 0 % (0-2); EOSINOPHILS ABSOLUTE MAN 0.01 K/mm3 (0.00-0.68); EOSINOPHILS PERCENT MAN 1 % (0-6); LYMPHOCYTES ABSOLUTE MAN 0.15 K/mm3 (0.84-5.20); LYMPHOCYTES PERCENT MAN 8 % (21-46); MONOCYTES ABSOLUTE MAN 0.05 K/mm3 (0.16-1.47); MONOCYTES PERCENT MAN 3 % (4-13); NEUTROPHILS ABSOLUTE MAN 1.69 K/mm3 (1.96-9.15); SEG NEUTROPHILS PERCENT MAN 73 % (41-73); TOTAL CELLS COUNTED 100
--- NOTE | 2020-08-06 15:25 | NUR ---
Joint visit with this RN and Palliative Care RN Patti. Pt resting in bed upon arrival. Pt's spouse Harlan and Pt's son Kojo at bedside. Pt resting with her eyes closed. She appears comfortable with no S/S of distress at this time. Engaged in therapeutic conversation regarding goals of care. Provided update on plan of care. Discussed hospice as an option. Re-enforced education on hospice philosophy. Answered questions and offered therapeutic listening. Family elects to pursue hospice. Hospice agencies to choose from discussed. Family chooses [facility]. Optioned to start comfort measures offered. Family at this time would like to continue current treatment until Pt is D/C with hospice. Family will consider option for comfort care as needed. Assisted family with completing POLST. Pt's wishes are DNR and Comfort Measures Only. Family expresses appreciation of visit and reports no other concerns at this time. Spoke with Bedside RN Latasha and discussed case. Pt still refusing oral intake. Spoke with Dr Saleh prior to Pt visit and discussed case. Spoke with [place] Canvas Repairer Altagracia and relayed family's wishes for [facility]. PPS 30% FAST 7D ADLs 6/6 Plan: Will obtain copy of POLST upon MD signature and deliver to medical records. Palliative Care will remain available.
--- NOTE | 2020-08-06 17:37 | NUR ---
Spiritual care note: Mrs. Holland had a slight response to voice/touch. She did not open her eyes or try to speak. She did move her hand into mine when I reached for it. She appears to be nearing end of life. No family present at time of visit. I will remain available.
--- NOTE | 2020-08-06 17:44 | NUR ---
SUMMARY: Admit 08/04/20 08/06/20 , Palliative care meeting today, decided on hospice. [facility] was chosen, needs to have a same day admit to hospice. I contacted Hilda at [facility]. She will review and give me a disharge date. Met with Harlan, let him know that [facility] would be contacting him. We would like to discharge home once Hospice service is available to start same day. Her son will be available to help with her care at home. Waiting for notification from hospice re: discharge date. cp
--- NOTE | 2020-08-06 18:32 | NUR ---
SHIFT SUMMARY ZENIA WAS CHANGED TO COMFORT CARE THIS SHIFT WITH HER SON AND HER AND PALLIATIVE AND DR PATIÑO TOGETHER MAKING THE DECISION. PT STILL MOSTY NON-RESPONSIVE, THOUGH PERIODS OF MORE WAKEFULNESS IN WHICH SHE OPENS HER EYES AND MUMBLES UNINTELLIGIBLY. NO NON-VERBAL S/S PAIN EXCEPT DISCOMFORT WITH TURNING. MEPILEX ON COCCYX REPLACED. DE LEON DRAINING WELL. NOW ON RA. NO PO INTAKE THIS SHIFT , SHE DECLINED AND CLAMPS HER MOUTH DOWN. FREQUENT CHECKS, WCTM
--- NOTE | 2020-08-06 20:25 | NUR ---
08/06/201999 PT OPENS EYES TO VERBAL STIMULI. NO VERBAL REPONCE. ON ROOM AIR AND O2 SATS= 94-99%. NO DISTRESS OR DISCOMFORT NOTED.
--- NOTE | 2020-08-07 01:51 | NUR ---
08/07/20 0000 RESTING COMFORTABLLY WITHOUT DISTRESS.
--- NOTE | 2020-08-07 07:37 | NUR ---
08/07/20 0600 Sleeping without distress. Repositioned q 2 hours. Opens eyes to touch or name but no comprehesible words, Corado draining well.
--- NOTE | 2020-08-07 10:45 | NUR ---
Comfort Care Visit Pt resting in bed with her eyes closed. Pt does not respond to gentle verbal stimuli. Pt appears comfortable with no S/S of distress at this time. Spoke with Bedside RN Veronica and discussed case. No concerns reported at this time. Palliative Care will remain available.
--- NOTE | 2020-08-07 16:39 | NUR ---
ADMIT: 08/04/20 DISCHARGE:08/09/20 DX: Dehydration CC: [email or web address] ADMIT: 05/09/20 DISCHARGE:05/11/20 DX: RIGHT HIP FRACTURE CC: [email or web address] DIANE CALL: discharge Wednesday 08/09 with [facility], call Harlan for diane RESIDENCE: Home with spouse CAREGIVER: Harlan Holland, Spouse / Partner, Has Son living locally to help with care. DX: CKD-stage 3, HTN, IBS, Lupus, DM, see list DME: compression stockings, DM supplies HOME HEALTH: 08/06/20 Patient family choice, [facility], d/c home 08/09/20 SUMMARY: Admit 08/04/20 08/07/20 [facility] agreed to start services on Wednesday, Alli will contact Harlan to arrange services, DME and transport. Hopeful to transport home on Wednesday mid morning. I called Harlan today and discussed hospice acceptance, he is looking forward to alli's call on for Wednesday discharge. cp
--- NOTE | 2020-08-07 18:00 | NUR ---
SHIFT SUMMARY PT HAS BEEN NONVERBAL THIS SHIFT. WILL OPEN EYES BUT DOES NOT TRACK WITH HER EYES. NO SIGNS OF DISCOMFORT/PAIN. PT HAS BEEN RESTING ALL SHIFT. FAMILY AT BEDSIDE THIS AFTERNOON. WILL CONTINUE TO MONITOR FOR COMFORT. CALL LIGHT IN REACH.
--- NOTE | 2020-08-07 18:27 | NUR ---
Spiritual care note: No family present when I visited this afternoon. Mrs. Holland appeared comfortable. She did not respond to voice or touch. Breaths even without distress. Prayer said at bedside. I will remain available.
--- NOTE | 2020-08-08 04:31 | NUR ---
FINAL DISCHARGE CALLED TO ROOM BY TERRANCE. PT WAS FOUND WITH NO RESPIRATIONS AND HEART BEAT COULD NOT BE FELT OR HEARD. TOD CALLED AT 0415. SHANTA NOTIFIED. AND SON COMING IN TO SEE PT. PASTORAL CARE DECLINED. STATED THAT SHE WOULD BE GOING TO A MORTUARY IN [place]. SOAP DRIER TENDER GINO LOOKING INTO AND WILL NOTIFY NURSING MEDICAL RECORDS CUSTODIAN.
--- NOTE | 2020-08-08 05:13 | NUR ---
DR. MIGUEL NOTIFIED OF PT PASSING.
--- NOTE | 2020-08-08 05:44 | NUR ---
PT'S DAUGHTER IN TO SEE PT WELL. CONFIRMED WITH FAMILY THAT THERE WERE NO PERSONAL BELONGINGS IN PT ROOM. FAMILY AT BEDSIDE WITH PT AT THIS TIME.
== END 2020-08-08 04:15 | DRG 884 ==
LOC: ER 14:35 → MEDS 16:38
PROVIDERS: Emergency Medicine; Internal Medicine; ADMIT Internal Medicine Gastroenterology
DX: F03.91 Unspecified dementia, unspecified severity, with behavioral disturbance (principal); N17.9 Acute kidney failure, unspecified; E87.0 Hyperosmolality and hypernatremia; G93.49 Other encephalopathy; N39.0 Urinary tract infection, site not specified; Z68.1 Body mass index [BMI] 19.9 or less, adult; F05 Delirium due to known physiological condition; Z20.822 Contact with and (suspected) exposure to COVID-19; Z51.5 Encounter for palliative care; Z66 Do not resuscitate; E03.9 Hypothyroidism, unspecified; E11.42 Type 2 diabetes mellitus with diabetic polyneuropathy; E11.65 Type 2 diabetes mellitus with hyperglycemia; E78.5 Hyperlipidemia, unspecified; E86.0 Dehydration; I10 Essential (primary) hypertension; M10.9 Gout, unspecified; Z95.0 Presence of cardiac pacemaker; M17.10 Unilateral primary osteoarthritis, unspecified knee; R68.0 Hypothermia, not associated with low environmental temperature; Z96.651 Presence of right artificial knee joint; B96.20 Unspecified Escherichia coli [E. coli] as the cause of diseases classified elsewhere
CPT/HCPCS: 0241U; 36415; 71045; 74176; 80048; 80053; 80069; 81001; 82947; 83735; 84295; 84443; 85025; 87040; 87086; 93005; 93010; 96374; 96375; 99285-25; A9270; J0696; J1650; J2405; J3010; J7050; J7070; J7120